=== PATIENT | male | born 2005 | race Caucasian/White ===

== ENCOUNTER 2025-02-28 08:17 | Observation (INO) ==
--- NOTE | 2025-02-28 08:59 | Emergency Department Note ---
ED Provider Note History of Present Illness Chief Complaint: Vomiting Stated Complaint: NON STOP VOMIT Time Seen by Provider: 02/28/25 08:34 Source: patient Mode of arrival: ambulatory Limitations: no limitations Patient is a 20-year-old male who presents to the emergency department with complaints of intractable vomiting. Patient states that he was seen at [facility] 2 days ago and he had some blood work completed that returned normal and they discharged home with Zofran. Patient states that yesterday the Zofran was not helping with the nausea and vomiting so he presented to the emergency department here at [facility]. Patient had repeat blood work and a CT of his abdomen pelvis completed yesterday while he was in the emergency department with no remarkable findings. Patient was discharged home yesterday with Zofran and plans to follow-up with GI. Patient presented here again today with intractable vomiting stating that he is unable to keep down any fluids or food. Patient denies any diarrhea and notes some intermittent abdominal cramping. Home Medications Medication Instructions Recorded Confirmed Type No Known Home Medications 02/28/25 02/28/25 History Allergies Allergy/AdvReac Type Severity Reaction Status Date / Time No Known Allergies Allergy Unverified 02/28/25 12:51 Past Med/Surg History Problem List (Updated 02/28/25 @ 15:31 by BLANE Oleary) Acute gastritis Nausea & vomiting (Acute) Social History Smoking Status: Current every day smoker Tobacco Type: E-cigarettes / Vaping Hx Alcohol Use: No Hx Substance Use: Yes Last Used Substance: Days (ago) Last Used Substance Other:: 02/25 Preferred Language: Russian Communication Ability: Effective [employer] Required: No Beliefs That Will Affect Care: None Current Living Situation: Family and Significant Other Current Living Situation Comment: girlfriend and daughter Feels Safe at Home: Yes Physical Exam Vital Signs Vital Signs - 24 hr 02/28/25 08:30 02/28/25 09:08 02/28/25 10:15 Temperature 36.7 C Temperature Source Skin Pulse Rate 47 L 43 L Pulse Rate [Apical] Pulse Rate from SpO2 Sensor 43 L Pulse Rhythm [Apical] Pulse Strength [Apical] Respiratory Rate 16 22 Respiratory Effort / Characteristics Non-Labored Spontaneous Respiratory Depth Normal Respiratory Pattern Regular Blood Pressure 134/61 Blood Pressure [Right Arm] Blood Pressure Mean 85 Blood Pressure Mean [Right Arm] Blood Pressure Position Sitting Blood Pressure Position [Right Arm] Pulse Oximetry 100 97 95 Oxygen Delivery Method Room Air Room Air Sepsis Recent Fever Within 48 Hours No Sepsis New/Unexplained Change in Mental Status N/A Sepsis Action Taken by Nursing No Action Required 02/28/25 10:21 02/28/25 10:30 02/28/25 10:30 Temperature Temperature Source Pulse Rate 49 L 47 L Pulse Rate [Apical] Pulse Rate from SpO2 Sensor 49 L Pulse Rhythm [Apical] Pulse Strength [Apical] Respiratory Rate 19 Respiratory Effort / Characteristics Respiratory Depth Respiratory Pattern Blood Pressure 133/75 Blood Pressure [Right Arm] Blood Pressure Mean 94 Blood Pressure Mean [Right Arm] Blood Pressure Position Blood Pressure Position [Right Arm] Pulse Oximetry 97 Oxygen Delivery Method Sepsis Recent Fever Within 48 Hours Sepsis New/Unexplained Change in Mental Status Sepsis Action Taken by Nursing 02/28/25 11:12 02/28/25 11:31 02/28/25 11:33 Temperature Temperature Source Pulse Rate 43 L 47 L 43 L Pulse Rate [Apical] Pulse Rate from SpO2 Sensor 43 L 43 L Pulse Rhythm [Apical] Pulse Strength [Apical] Respiratory Rate 21 22 20 Respiratory Effort / Characteristics Respiratory Depth Respiratory Pattern Blood Pressure 126/65 120/65 120/65 Blood Pressure [Right Arm] Blood Pressure Mean 85 84 83 Blood Pressure Mean [Right Arm] Blood Pressure Position Blood Pressure Position [Right Arm] Pulse Oximetry 98 99 98 Oxygen Delivery Method Sepsis Recent Fever Within 48 Hours Sepsis New/Unexplained Change in Mental Status Sepsis Action Taken by Nursing 02/28/25 12:06 02/28/25 12:32 02/28/25 12:49 Temperature Temperature Source Pulse Rate 57 L Pulse Rate [Apical] 49 L 53 L Pulse Rate from SpO2 Sensor 53 L Pulse Rhythm [Apical] Regular Pulse Strength [Apical] Normal Respiratory Rate 12 20 20 Respiratory Effort / Characteristics Non-Labored Spontaneous Respiratory Depth Normal Respiratory Pattern Regular Blood Pressure Blood Pressure [Right Arm] 125/64 132/65 Blood Pressure Mean Blood Pressure Mean [Right Arm] 84 87 Blood Pressure Position Blood Pressure Position [Right Arm] Lying Lying Pulse Oximetry 98 96 98 Oxygen Delivery Method Room Air Sepsis Recent Fever Within 48 Hours Sepsis New/Unexplained Change in Mental Status Sepsis Action Taken by Nursing VITAL SIGNS - Vital signs and nursing notes were reviewed. GENERAL -20-year-old male appearing his stated age who is in no acute distress. Communicates well with provider and answers questions appropriately. HEAD - NC/AT. EYES - PERRL with EOMI bilaterally. Conjunctiva pink and moist with no injection noted. EARS - No deformities of external structures noted on gross examination bilaterally. NOSE - Midline and without cyanosis. No epistaxis or purulent drainage noted. LUNGS - Chest wall symmetric without accessory muscle use, intercostals retractions, or central cyanosis. Breath sounds clear throughout all arshad. No wheezes, rales, or rhonchi appreciated. CARDIAC - RRR with S1/S2. No murmur, rubs, or gallops appreciated. ABDOMEN - Abdominal contour without pulsations or visible masses. Negative Keyon's or Moreno Whyte's Signs. BS normoactive all four quadrants. No increased tenderness to palpation appreciated. No guarding. No rebound Tenderness. No palpable masses, hepatosplenomegaly, or ascites noted. NEUROLOGIC - Sensory intact to light touch throughout. PSYCH - A&Ox3 and cooperates fully with examiner. Pt is very pleasant and interacts well with examiner. Course Administered Medications Discontinued Medications Sodium Chloride (Nss) 1,000 mls @ 999 mls/hr IV .Q1H1M ONE Stop: 02/28/25 09:44 Last Infusion: 02/28/25 10:09 Dose: Infused Documented By: Admin: 02/28/25 09:04 Dose: 999 mls/hr Documented By: ERMA Potassium Chloride (K Arias / Wtr) 10 meq in 100 mls @ 100 mls/hr IV ONE ONE Stop: 02/28/25 11:25 Last Infusion: 02/28/25 12:26 Dose: Infused Documented By: Admin: 02/28/25 10:44 Dose: 100 mls/hr Documented By: ERMA Sodium Chloride (Nss) 1,000 mls @ 999 mls/hr IV .Q1H1M ONE Stop: 02/28/25 11:26 Last Infusion: 02/28/25 12:26 Dose: Infused Documented By: Admin: 02/28/25 10:44 Dose: 999 mls/hr Documented By: ERMA Promethazine HCl (Phenergan) 12.5 mg in 50.5 mls @ 202 mls/hr IV NOW STA Stop: 02/28/25 12:14 Last Infusion: 02/28/25 12:26 Dose: Infused Documented By: Admin: 02/28/25 12:04 Dose: 202 mls/hr Documented By: JM Metoclopramide HCl (Metoclopramide Hcl Inj 5 Mg/Ml 2 Ml Vial) 10 mg IV NOW STA Stop: 02/28/25 11:37 Last Admin: 02/28/25 11:41 Dose: 10 mg Documented By: JM Ondansetron HCl (Ondansetron Inj 2 Mg/Ml 2 Ml Vial) 4 mg IV NOW STA Stop: 02/28/25 08:45 Last Admin: 02/28/25 09:04 Dose: 4 mg Documented By: ERMA Medical Decision Making Differential Diagnosis Intractable vomiting, gastritis, gastroenteritis, IBS, small bowel obstruction, pancreatitis, peritonitis, cannabis hyperemesis syndrome, among others. Medical Records Attestation: I reviewed the patient's medical records. Home Medications was personally reviewed by me Laboratory Data Attestation: I reviewed the patient's lab results. 02/28/25 09:05 02/28/25 09:05 Lab Results 02/28/25 02/28/25 02/28/25 Range/Units 09:00 09:05 10:43 WBC 8.30 (4.8-10.8) K/ul RBC 4.03 L (4.70-6.10) M/uL Hgb 12.4 L (14.0-18.0) g/dl Hct 35.3 L (42.0-52.0) % MCV 87.6 (80.0-100.0) fL MCH 30.8 (25.0-34.0) pg MCHC 35.1 (32.0-36.0) g/dL RDW Std Deviation 38.9 (36.4-46.3) fL RDW Coeff of Jeovanny 12.0 (11.5-14.5) % Plt Count 212 (130-400) K/uL MPV 10.8 (9.4-12.4) fL Immature Gran % (Auto) 0.2 % Neut % (Auto) 78.7 % Lymph % (Auto) 11.7 % Vermillion % (Auto) 9.0 % Eos % (Auto) 0.0 % Baso % (Auto) 0.4 % Neut # (Auto) 6.53 H (1.40-6.50) K/uL Lymph # (Auto) 0.97 L (1.20-3.40) K/uL Vermillion # (Auto) 0.75 H (0.11-0.59) K/uL Eos # (Auto) 0.00 (0.00-0.50) K/uL Baso # (Auto) 0.03 (0.00-0.20) K/uL Immature Gran # (Auto) 0.02 (0.01-0.20) K/uL VBG pH 7.42 H (7.36-7.41) VBG pCO2 46 (38-50) mmHg VBG pO2 48 mmHg VBG HCO3 30 mmol/L VBG O2 Saturation 77.9 % VBG Base Excess 4.5 mEq/L Sodium 137 (136-145) mmol/L Potassium 3.2 L (3.5-5.1) mmol/L Chloride 102 (98-107) mmol/L Carbon Dioxide 29 (21-32) mmol/L Anion Gap 6 (3-11) BUN 11 (6-23) mg/dl Creatinine 0.91 (0.6-1.4) mg/dl Est Cr Clr Drug Dosing 131.3 ml/min eGFR 123.74 BUN/Creatinine Ratio 12.1 (10-20) Glucose 145 H (70-99(Fasting)) mg/dl Calcium 9.3 (8.6-10.3) mg/dl Total Bilirubin 1.2 H (0.2-1.0) mg/dl AST 14 (13-39) U/L ALT 9 (7-52) U/L Alkaline Phosphatase 59 (34-104) U/L Total Protein 6.6 (6.0-8.3) gm/dl Albumin 4.5 (3.4-5.0) gm/dl Globulin 2.1 L (2.5-4.0) gm/dl Albumin/Globulin Ratio 2.1 H (0.9-2) Lipase 29 (11-82) U/L Urine Color Yellow Urine Appearance Clear (Clear) Urine pH 7.5 (4.5-7.5) Ur Specific Omak 1.025 (1.000-1.030) Urine Protein Trace H (Negative) Urine Glucose (UA) Trace H (Negative) Urine Ketones 4+ H (Negative) Urine Blood Negative (Negative) Urine Nitrite Negative (Negative) Urine Bilirubin 1+ H (Negative) Urine Urobilinogen Positive H (Negative) Ur Leukocyte Esterase Negative (Negative) Urine RBC 0-2 (0-2) /hpf Urine WBC 0-5 (0-5) /hpf Ur Epithelial Cells 0-2 (0-2) /hpf Urine Bacteria None Seen (None Seen) Urine Comment Imaging Data Radiologist's Impression: Liver Ultrasound 02/28/25 08:44 US liver CLINICAL HISTORY: persistent abdominal pain vomiting, compare CT COMPARISON STUDY: CT of the abdomen and pelvis February 27, 2025. FINDINGS: There are no hepatic lesions. The liver is sonographically normal. There is no biliary ductal dilatation status post cholecystectomy. The common bile duct measures 4 mm in caliber. There is trace perihepatic fluid. The pancreatic body is normal. The head and tail are partially obscured. There is no right hydronephrosis. IMPRESSION: 1. No biliary ductal dilatation status post cholecystectomy. 2. Trace perihepatic fluid. ACT 112: Negative or not required by law. Electronically signed by: Royal Wong M.D. 02/28/2025 10:41 AM [facility] Narrative Patient is a 20-year-old male who presents to the emergency department with complaints of intractable vomiting. Patient states that he was seen at [facility] 2 days ago and he had some blood work completed that returned normal and they discharged home with Zofran. Patient states that yesterday the Zofran was not helping with the nausea and vomiting so he presented to the emergency department here at [facility]. Patient had repeat blood work and a CT of his abdomen pelvis completed yesterday while he was in the emergency department with no remarkable findings. Patient was discharged home yesterday with Zofran and plans to follow-up with GI. Patient presented here again today with intractable vomiting stating that he is unable to keep down any fluids or food. Patient denies any diarrhea and notes some intermittent abdominal cramping. Patient was evaluated by myself and findings were noted in the physical exam above. Patient was ordered IV placement, lab work, ultrasound, and a liter of normal saline as well as a dose of Zofran. Patient's lab work resulted with a normal white blood cell count of 8.30. Patient had some mild anemia noted with a hemoglobin of 12.4 and hematocrit of 35.3. Patient had no significant electrolyte imbalance noted. Patient did have a slightly elevated blood glucose of 145. Patient had some mild hypokalemia 3.2. Patient had a VBG collected which was unremarkable. Patient's urinalysis was positive for ketones and bilirubin, however was not indicative of infection. Patient also had an ultrasound of his liver completed to note no biliary ductal dilation status postcholecystectomy and the liver was sonographically normal. Patient did have some trace perihepatic fluid noted. Patient had a hepatitis panel collected at his visit to the emergency department yesterday which thus far is resulted negative with several results still pending. I discussed all these findings with the patient and the patient verbalized understanding. Patient notes that he still feeling significantly nauseous and was ordered a dose of Reglan as well as potassium replacement and more normal saline at this time. Upon subsequent reevaluation the patient is still feeling severely nauseous and had an episode of emesis when he attempted to drink p.o. fluids. Patient was ordered a dose of Phenergan and noted that he does not he is going to be able to go home when he is feeling as sick as he is and believes that he may just come back to the emergency department because his symptoms have been so debilitating. I reached out and [facility] and gave him a full report of the patient's chief complaint, current status and the results of his imaging and lab work. I discussed with him that the patient does not feel that he can go home with the level of nausea and vomiting that he has been experiencing. Dr. Guerrero agreed to admit the patient for observation under his service. Please [facility] for further evaluation and management of this patient. Impression Nausea & vomiting Discharge Plan Visit Data Chief Complaint: Vomiting Stated Complaint: NON STOP VOMIT ED Provider: Ander Vazquez ED Midlevel Provider: Hannah Metzger Discharge Problem: Nausea & vomiting Patient Disposition: Admitted As Inpatient Condition: Fair Discharge Instructions Interventions: ED Discharge Assessment Last Done: 02/28/25 14:38 ED DC CONDITION Conditon at Discharge Condition at Discharge: Good Discharge Problem: Nausea & vomiting Qualifiers: Vomiting type: unspecified Qualified Code(s): R11.2 - Nausea with vomiting, unspecified
[2025-02-28] MEDS: ONDANSETRON INJ 2 MG/ML 2 ML VIAL IV STA (09:04)
[2025-02-28] MEDS: SODIUM CHLORIDE 0.9% 1,000 ML IV ONE ×2 (09:04→10:44)
[2025-02-28 09:21] LABS: Appearance Urine Clear (Clear); Glucose Urine UA Trace (Negative)
[2025-02-28 09:28] LABS: Hematocrit (blood only) 35.3 % (42.0-52.0); Hemoglobin 12.4 g/dl (14.0-18.0); Immature Granulocytes # (auto) 0.02 K/uL (0.01-0.20); Immature Granulocytes % (auto) 0.2 %; Mean Corpuscular Hemoglobin 30.8 pg (25.0-34.0); Mean Corpuscular Volume 87.6 fL (80.0-100.0); Platelet Count 212 K/uL (130-400); RDW Standard Deviation 38.9 fL (36.4-46.3); Red Blood Count 4.03 M/uL (4.70-6.10); White Blood Count 8.30 K/ul (4.8-10.8)
[2025-02-28 09:32] LABS: Epithelial Cell Urine 0-2 /hpf (0-2)
[2025-02-28 09:46] LABS: Alanine Aminotransferase 9.0 U/L (7-52); Albumin Globulin Ratio 2.1 (0.9-2); Alkaline Phosphatase 59.0 U/L (34-104); Anion Gap 6.0 (3-11); Bilirubin,Total 1.2 mg/dl (0.2-1.0); Blood Urea Nitrogen 11.0 mg/dl (6-23); Calcium 9.3 mg/dl (8.6-10.3); Carbon Dioxide 29.0 mmol/L (21-32); Chloride 102.0 mmol/L (98-107); Creatinine Clr Calc Pharmacy 131.3 ml/min; Globulin 2.1 gm/dl (2.5-4.0); Glucose 145.0 mg/dl (70-99(Fasting)); Lipase 29.0 U/L (11-82); Potassium 3.2 mmol/L (3.5-5.1); Sodium 137.0 mmol/L (136-145); Total Protein 6.6 gm/dl (6.0-8.3)
--- NOTE | 2025-02-28 10:42 | Ultrasound Report ---
US liver CLINICAL HISTORY: persistent abdominal pain vomiting, compare CT COMPARISON STUDY: CT of the abdomen and pelvis February 27, 2025. FINDINGS: There are no hepatic lesions. The liver is sonographically normal. There is no biliary duct al dilatation status post cholecystectomy. The common bile duct measures 4 mm in caliber. There is tr ino perihepatic fluid. The pancreatic body is normal. The head and tail are partially obscured. There is no right hydronephrosis. IMPRESSION: 1. No biliary ductal dilatation status post cholecystectomy. 2. Trace perihepatic fluid. ACT 112: Negative or not required by law. Electronically signed by: Royal Wong M.D. 02/28/2025 10:41 AM
[2025-02-28] MEDS: POTASSIUM CHLORIDE / WTR 10 MEQ/100 ML PLCT IV ONE (10:44)
[2025-02-28 10:48] LABS: Base Excess VBG 4.5 mEq/L; HCO3 VBG 30 mmol/L; Oxygen Saturation VBG 77.9 %; PCO2 VBG 46 mmHg (38-50); PO2 VBG 48 mmHg; pH VBG 7.42 (7.36-7.41)
[2025-02-28] MEDS: METOCLOPRAMIDE HCL INJ 5 MG/ML 2 ML VIAL IV STA (11:41)
[2025-02-28] MEDS: PROMETHAZINE 12.5 MG/50.5 ML BAG IV STA (12:04)
--- NOTE | 2025-02-28 13:36 | History & Physical Report ---
Date of Service February 28, 2025 Assessment & Plan (1) Nausea & vomiting: Plan: Found to be due to acute gastritis. Scheduled parenteral Reglan ordered. Phenergan will be administered as needed. Supportive care (2) Acute gastritis: Plan: IV Protonix. P.o. Carafate. Clear liquids to start. Advance as tolerated Plan Hopeful discharge to home within the next day or 2 History of Present Illness Chief Complaint: Epigastric pain, intractable nausea vomiting Primary Care Provider: Aminata Sheridan DO 20-year-old white male in otherwise good health who has had several days of epigastric discomfort and protracted nausea and vomiting. He is unable to keep down either liquids or solids. He denies hematemesis, melena or hematochezia. He does admit to smoking marijuana on a regular basis but has no previous history of hyperemesis. He denies acid reflux symptoms. He appears to have acute gastritis associated with intractable nausea and vomiting. Potassium level is low. He is placed in observation status for IV fluid rehydration and control of symptoms and treatment of suspected acute gastritis. Allergies Allergy/AdvReac Type Severity Reaction Status Date / Time No Known Allergies Allergy Unverified 02/28/25 12:51 Home Medications Medication Instructions Recorded Confirmed Type No Known Home Medications 02/28/25 02/28/25 History Past Med/Surg History Problem List (Updated 02/28/25 @ 13:35 by David Cardenas MD) Acute gastritis Nausea & vomiting (Acute) Social History Smoking Status: Current every day smoker Tobacco Type: E-cigarettes / Vaping Feels Safe at Home: Yes Review of Systems 2 Review of Systems: Constitutionalno fever or chills ENTno blurred vision, no double vision, no epistaxis, no sore throat Respiratoryno cough, no wheezing, no shortness of breath Cardiacno palpitations, no chest pain, no syncope GIpersistent and intractable nausea and vomiting. Epigastric discomfort. No melena or hematochezia. No GERD symptoms GUno urinary retention, no urinary incontinence, no dysuria, no hematuria Musculoskeletalno joint pain, no muscle tenderness Skinno bruising, no rashes, no pruritus Neurono isolated weakness, no paresthesia, no weakness Psychno depression, no anxiety Physical Exam 2 Physical Exam: General-alert and oriented x3, no fever, no chills HEENT-head atraumatic and normocephalic, pupils equal and reactive to light, extraocular muscles intact Neck-no lymphadenopathy or thyromegaly, trachea midline Chest-clear to auscultation. No rales, wheezing or rhonchi Cardiac-regular rate and rhythm, normal S1 and S2 Abdomen-normal bowel sounds, no hepatosplenomegaly. Nondistended. Tender epigastric region. No rebound or guarding. No masses Extremities-no cyanosis, clubbing, or edema Neuro-cranial nerves II through XII intact, motor and sensory function within normal limits, strength symmetrical, no focal deficits Psych-normal affect, normal mood Results & Data Results & Data Vital Signs (Past 12 Hours) Vital Signs Temp Pulse Pulse Resp BP BP Pulse Ox 02/28/25 12:49 53 L 20 132/65 98 02/28/25 12:32 49 L 20 125/64 96 02/28/25 12:06 57 L 12 98 02/28/25 11:33 43 L 20 120/65 98 02/28/25 11:31 47 L 22 120/65 99 02/28/25 11:12 43 L 21 126/65 98 02/28/25 10:30 47 L 19 97 02/28/25 10:30 133/75 02/28/25 10:21 49 L 02/28/25 10:15 43 L 22 95 02/28/25 09:08 97 02/28/25 08:30 36.7 C 47 L 16 134/61 100 O2 Del Method 02/28/25 12:49 02/28/25 12:32 Room Air 02/28/25 12:06 02/28/25 11:33 02/28/25 11:31 02/28/25 11:12 02/28/25 10:30 02/28/25 10:30 02/28/25 10:21 02/28/25 10:15 02/28/25 09:08 Room Air 02/28/25 08:30 Room Air Laboratory Results 02/28/25 09:05 02/28/25 09:05 Code Status & VTE Plan Code Status Full code PG Care Time/CCT Total # of Minutes Spent Total Time Spent with Patient: Total time spent is greater than 50% in coordination of care (as documented) at patient's floor/unit and/or counseling patient: Coding Level of Care Code 12312 INT INP/OBS CARE 3/75MIN Diagnoses Nausea & vomiting R11.2 Acute gastritis K29.00
[2025-02-28] MEDS: METOCLOPRAMIDE HCL INJ 5 MG/ML 2 ML VIAL IV SCH (15:29)
[2025-02-28] MEDS: POTASSIUM CHLORIDE 40 MEQ in D5W AND NSS 1,000 ML IV SCH (15:38)
[2025-02-28] MEDS: SUCRALFATE 1 GM TAB PO SCH (15:40)
[2025-02-28] MEDS: PROMETHAZINE 6.25 MG/50.25 ML BAG IV PRN (18:14)
[2025-02-28] MEDS: ZOLPIDEM TARTRATE 5 MG TAB PO SCH (21:42)
[2025-02-28] MEDS: PANTOprazole 40 MG/10 ML SYR IV SCH (21:42)
[2025-02-28] MEDS: ONDANSETRON INJ 2 MG/ML 2 ML VIAL IV PRN (22:15)
[2025-03-01] MEDS: PROCHLORPERAZINE 5 MG in SYRINGE 4 ML IV PRN (00:21)
[2025-03-01 06:12] LABS: Hematocrit (blood only) 35.3 % (42.0-52.0); Hemoglobin 11.8 g/dl (14.0-18.0); Immature Granulocytes # (auto) 0.03 K/uL (0.01-0.20); Immature Granulocytes % (auto) 0.3 %; Mean Corpuscular Hemoglobin 29.3 pg (25.0-34.0); Mean Corpuscular Volume 87.6 fL (80.0-100.0); Platelet Count 211 K/uL (130-400); RDW Standard Deviation 39.1 fL (36.4-46.3); Red Blood Count 4.03 M/uL (4.70-6.10); White Blood Count 9.53 K/ul (4.8-10.8)
[2025-03-01 06:30] LABS: Anion Gap 4.0 (3-11); Blood Urea Nitrogen 6.0 mg/dl (6-23); Calcium 8.6 mg/dl (8.6-10.3); Carbon Dioxide 28.0 mmol/L (21-32); Chloride 105.0 mmol/L (98-107); Creatinine Clr Calc Pharmacy 142.3 ml/min; Glucose 236.0 mg/dl (70-99(Fasting)); Potassium 4.8 mmol/L (3.5-5.1); Sodium 137.0 mmol/L (136-145)
--- NOTE | 2025-03-01 10:45 | Gastrointestinal Consultation ---
Date of Consultation March 01, 2025 Assessment & Plan (1) Nausea & vomiting: -Continue PPI -Continue antiemetics per primary team -Check A1C given hyperglycemic on fasting labs -Await hepatitis testing -Celiac panel in AM -Would have to keep in mind that marijuana may be triggering his cyclic vomiting syndrome. Will add Amitriptyline 10 mg QHS, with plans to titrate upwards to 25 mg QHS if tolerated. Supervising Physician Co-Signing Physician Notes Based on history his clinical pattern profile consistent with cyclic vomiting disorder. Question of a gangrenous cholecystitis in the past so this would be quite unusual in a fourteen 15-year-old. Asked them to obtain the path report from his Yazmin cystectomy in [place]. At this point I believe marijuana may be the trigger for reactivation of his cyclic vomiting disorder. He is vaping both nicotine and marijuana both which may trigger nausea. I think he is in a full-blown episode now which may be slow to settle. Management is hydration and antinauseants. Add amitriptyline. Reviewed in detail. Patient states will abstain from marijuana. Tells me his medical marijuana variant was 87% THC. Interesting patient started losing weight prior to this episode. Dating back to November. Suspect this was the prodrome to marijuana hyperemesis syndrome. Patient does not have hepatitis based on lab testing normal LFTs. Count normal. Abdomen entirely benign. History of Present Illness Reason for Consultation: Intractable n/v, patient requests consult Attending Physician: David Cardenas MD History of Present Illness Patient is a 20 yo male with a history of intermittent nausea and vomiting since age 14. Mother is at the bedside and supplements the history. She notes he had an extensive work-up with endoscopy, CT imaging, ultrasounds, labs. He was told he had cyclic vomiting syndrome. Episodes of nausea and vomiting would happen every 3 months without clear triggers. PPIs did not help, nor did H2 blockers. Mother notes that he was told that it was cannabinoid hyperemesis syndrome but she notes that they did not believe that could be true nor did his PCP as they did not feel that his marijuana use was significant enough. At some point throughout his teenage years, he notes that a surgeon took out his gallbladder at [facility]. He was seeing a GI there as well. He notes he managed his symptoms well for years after the cholecystectomy with Zofran. This changed several days ago when he developed epigastric pain, nausea, and vomiting. He felt that this was different than his previous episodes of n/v. Symptoms began after eating chips at work. He was unable to keep down solids or liquids. No hematemesis, melena, or hematochezia, but notes looser stool. He notes he smokes marijuana and UDS does corroborate this. No acid reflux or heartburn. No focal abdominal pain. K was low. Work up thus far at [facility] includes: * H/H 11.8/35.3 * Current Sodium, Potassium, CO2, Cl, BUN, Cr within normal limits now, but K on admission was 3.2 * VBG pH on admission was 7.42 * Serum glucose 236 this AM, serum glucose 145 on 02/28, serum glucose 136 on 02/27/25 * T bili 1.2 * AST/ALT within normal limits * UA showed trace protein and glucose, but 4+ ketones, 1+ bili, and + urobilinogen * Hepatitis A pending * Hepatitis C negative * Hepatitis B IgM Ab pending * Hepatitis B antigen negative * Liver US that shows trace perihepatic fluid * CT abd/pelvis suggests mild hepatomegaly and findings concerning for a possible hepatitis Patient currently prescribed Compazine, Reglan, Zofran, Carafate, Promethazine by the primary team Allergies Allergy/AdvReac Type Severity Reaction Status Date / Time No Known Allergies Allergy Unverified 02/28/25 12:51 Home Medications Medication Instructions Recorded Confirmed Type No Known Home Medications 02/28/25 02/28/25 History Patient History Social History Smoking Status: Current every day smoker Tobacco Type: E-cigarettes / Vaping Hx Alcohol Use: No Hx Substance Use: Yes Last Used Substance: Days (ago) Last Used Substance Other:: 02/25 Preferred Language: Slovenian Communication Ability: Effective 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 Beliefs That Will Affect Care: None Current Living Situation: Family and Significant Other Current Living Situation Comment: girlfriend and daughter Feels Safe at Home: Yes Assistive Devices: None Review of Systems Constitutional: no fever and no chills Respiratory: no cough and no dyspnea Gastrointestinal: + abdominal pain (epigastric), + nausea and + vomiting Physical Exam Constitutional: well developed; no acute distress Respiratory: normal respiratory effort Cardiovascular: Rate/Rhythm: regular rate Gastrointestinal (Abdomen): normal bowel sounds, soft, nontender, no hepatosplenomegaly Psychiatric: Orientation: alert and oriented x 3 Results & Data Vital Signs (Past 12 Hours) Vital Signs Temp Pulse Resp BP Pulse Ox O2 Del Method 03/01/25 07:17 37.0 C 49 L 14 113/59 L 97 Room Air 02/28/25 23:51 148/73 H 02/28/25 23:50 36.8 C 45 L 18 99 Room Air PG Care Time/CCT Total # of Minutes Spent Total Time Spent with Patient: Total time spent is greater than 50% in coordination of care (as documented) at patient's floor/unit and/or counseling patient: Coding Level of Care Code 14926 INT INP/OBS CARE 3/75MIN Diagnoses Nausea & vomiting R11.2 Vomiting type: unspecified (1) Nausea & vomiting Vomiting type: unspecified Qualified Code(s): R11.2 - Nausea with vomiting, unspecified
[2025-03-01 11:04] VITALS: RESP 16
[2025-03-01 13:36] LABS: Hemoglobin A1C 5.3 % (4.5-5.6)
--- NOTE | 2025-03-01 14:00 | Hospitalist Progress Note ---
Date of Service March 01, 2025 Assessment & Plan (1) Nausea & vomiting: Plan: Thought to be due to cannabis hyperemesis syndrome and acute gastritis. Continue scheduled parenteral Reglan. Continue Protonix and Carafate. GI consultation appreciated. (2) Acute gastritis: Plan: Continue treatment with Protonix and Carafate. Diet has been advanced. IV fluids have been tapered down. (3) Cannabis hyperemesis syndrome concurrent with and due to cannabis abuse: Plan: By past history. Plan Anticipate eventual discharge to home once symptomatically improved Admission and Anticipated Discharge Date Admission Date: February 28, 2025 Subjective Alert and oriented. No distress. Unfortunately he still has persistent nausea and remains on parenteral scheduled Reglan therapy. He is also on Protonix and Carafate. IV fluids have been tapered down and diet advanced. Gastroenterology consultation noted. Apparently he has a past history of hyperemesis cannabis syndrome. Review of Systems 2 Review of Systems: Constitutionalno fever or chills ENTno blurred vision, no double vision, no epistaxis, no sore throat Respiratoryno cough, no wheezing, no shortness of breath Cardiacno palpitations, no chest pain, no syncope GIpersistent and intractable nausea and vomiting. Epigastric discomfort. No melena or hematochezia. No GERD symptoms GUno urinary retention, no urinary incontinence, no dysuria, no hematuria Musculoskeletalno joint pain, no muscle tenderness Skinno bruising, no rashes, no pruritus Neurono isolated weakness, no paresthesia, no weakness Psychno depression, no anxiety Physical Exam 2 Physical Exam: General-alert and oriented x3, no fever, no chills HEENT-head atraumatic and normocephalic, pupils equal and reactive to light, extraocular muscles intact Neck-no lymphadenopathy or thyromegaly, trachea midline Chest-clear to auscultation. No rales, wheezing or rhonchi Cardiac-regular rate and rhythm, normal S1 and S2 Abdomen-normal bowel sounds, no hepatosplenomegaly. Nondistended. Tender epigastric region. No rebound or guarding. No masses Extremities-no cyanosis, clubbing, or edema Neuro-cranial nerves II through XII intact, motor and sensory function within normal limits, strength symmetrical, no focal deficits Psych-normal affect, normal mood Results & Data Results & Data Vital Signs (Past 12 Hours) Vital Signs Temp Pulse Resp BP Pulse Ox O2 Del Method O2 Flow Rate 08/19/25 11:02 36.7 C 74 16 112/56 L 96 Nasal Cannula 1 03/01/25 07:17 37.0 C 49 L 14 113/59 L 97 Room Air Laboratory Results 03/01/25 05:43 03/01/25 05:43 PG Care Time/CCT Total # of Minutes Spent Total Time Spent with Patient: Total time spent is greater than 50% in coordination of care (as documented) at patient's floor/unit and/or counseling patient: Coding Level of Care Code 65614 SUB INP/OBS CARE 2/35MIN Diagnoses Nausea & vomiting R11.2 Vomiting type: unspecified Acute gastritis K29.00 Cannabis hyperemesis syndrome concurrent with and due to cannabis abuse F12.188 (1) Nausea & vomiting Vomiting type: unspecified Qualified Code(s): R11.2 - Nausea with vomiting, unspecified
[2025-03-01 14:41] LABS: Adenovirus F 40/41 PCR Not Detected (NotDetected); Campylobacter PCR Not Detected (NotDetected); Enteroaggregative E.coli(EAEC) Not Detected (NotDetected); Shiga-like Toxin E.coli (STEC) Not Detected (NotDetected); Vibrio species PCR Not Detected (NotDetected)
[2025-03-01] MEDS: AMITRIPTYLINE HCL 10 MG TAB PO SCH (20:36)
[2025-03-02 06:12] LABS: Hematocrit (blood only) 36.2 % (42.0-52.0); Hemoglobin 12.9 g/dl (14.0-18.0); Immature Granulocytes # (auto) 0.03 K/uL (0.01-0.20); Immature Granulocytes % (auto) 0.3 %; Mean Corpuscular Hemoglobin 30.9 pg (25.0-34.0); Mean Corpuscular Volume 86.6 fL (80.0-100.0); Platelet Count 218 K/uL (130-400); RDW Standard Deviation 38.2 fL (36.4-46.3); Red Blood Count 4.18 M/uL (4.70-6.10); White Blood Count 9.24 K/ul (4.8-10.8)
[2025-03-02 06:31] LABS: Anion Gap 7.0 (3-11); Blood Urea Nitrogen 5.0 mg/dl (6-23); Calcium 9.3 mg/dl (8.6-10.3); Carbon Dioxide 30.0 mmol/L (21-32); Chloride 103.0 mmol/L (98-107); Creatinine Clr Calc Pharmacy 123.2 ml/min; Glucose 116.0 mg/dl (70-99(Fasting)); Potassium 4.0 mmol/L (3.5-5.1); Sodium 140.0 mmol/L (136-145)
--- NOTE | 2025-03-02 12:17 | Hospitalist Progress Note ---
Date of Service March 02, 2025 Assessment & Plan (1) Nausea & vomiting: Plan: Thought to be due to cannabis hyperemesis syndrome and acute gastritis. Continue scheduled parenteral Reglan. Continue Protonix and Carafate. GI consultation appreciated. Unfortunately, no improvement yet (2) Acute gastritis: Plan: Continue treatment with Protonix and Carafate. Diet has been advanced. IV fluids have been tapered down. (3) Cannabis hyperemesis syndrome concurrent with and due to cannabis abuse: Plan: By past history. Plan Anticipate eventual discharge to home once symptomatically improved. Hopefully within the next day or 2 Admission and Anticipated Discharge Date Admission Date: March 02, 2025 Subjective Unfortunately, no improvement yet. Oral intake remains poor. He is on maximal medical therapy with oral Protonix and Carafate along with scheduled dosing of intravenous metoclopramide. Review of Systems 2 Review of Systems: Constitutionalno fever or chills ENTno blurred vision, no double vision, no epistaxis, no sore throat Respiratoryno cough, no wheezing, no shortness of breath Cardiacno palpitations, no chest pain, no syncope GIpersistent and intractable nausea and vomiting. Epigastric discomfort. No melena or hematochezia. No GERD symptoms GUno urinary retention, no urinary incontinence, no dysuria, no hematuria Musculoskeletalno joint pain, no muscle tenderness Skinno bruising, no rashes, no pruritus Neurono isolated weakness, no paresthesia, no weakness Psychno depression, no anxiety Physical Exam 2 Physical Exam: General-alert and oriented x3, no fever, no chills HEENT-head atraumatic and normocephalic, pupils equal and reactive to light, extraocular muscles intact Neck-no lymphadenopathy or thyromegaly, trachea midline Chest-clear to auscultation. No rales, wheezing or rhonchi Cardiac-regular rate and rhythm, normal S1 and S2 Abdomen-normal bowel sounds, no hepatosplenomegaly. Nondistended. Tender epigastric region. No rebound or guarding. No masses Extremities-no cyanosis, clubbing, or edema Neuro-cranial nerves II through XII intact, motor and sensory function within normal limits, strength symmetrical, no focal deficits Psych-normal affect, normal mood Results & Data Results & Data Vital Signs (Past 12 Hours) Vital Signs Temp Pulse Resp BP Pulse Ox O2 Del Method 03/02/25 07:09 36.8 C 52 L 16 144/70 H 95 Room Air Laboratory Results 03/02/25 05:44 03/02/25 05:44 PG Care Time/CCT Total # of Minutes Spent Total Time Spent with Patient: Total time spent is greater than 50% in coordination of care (as documented) at patient's floor/unit and/or counseling patient: Coding Level of Care Code 59730 SUB INP/OBS CARE 2/35MIN Diagnoses Nausea & vomiting R11.2 Vomiting type: unspecified Acute gastritis K29.00 Cannabis hyperemesis syndrome concurrent with and due to cannabis abuse F12.188 (1) Nausea & vomiting Vomiting type: unspecified Qualified Code(s): R11.2 - Nausea with vomiting, unspecified
--- NOTE | 2025-03-02 14:39 | Gastroenterology Progress Note ---
Date of Service March 02, 2025 Assessment & Plan (1) Cyclic vomiting syndrome: Plan: -Continue Amitriptyline 10 mg QHS with plans to up-titrate. Did discuss yesterday this is not an abortive measure but a preventative intervention. -Continue IV Reglan as ordered. -Continue IV Protonix 40 mg BID. -Continue IV fluid hydration. -Add Sumatriptan 6 mg SC once to see if he benefits from this. -Did discuss that EGD while actively vomiting is not ideal due to risk of aspiration. Admission and Anticipated Discharge Date Admission Date: March 02, 2025 Supervising Physician Co-Signing Physician Notes Continues with nausea and vomiting. When examined at the bedside he was resting reasonably comfortable. Abdomen remains soft and benign. Because of persistent symptoms we will try Imitrex which can be used off label for cyclic vomiting disorder. Interestingly there is multiple family members with GI issues and cholecystectomies. Occasionally cyclic vomiting disorder can be associated with a mitochondrial disorder. CoQ 10 may be of benefit in this regard. Continue supportive care. In a well-established episode like this it can take 5 to 7 days to settle. No plan for endoscopy though we will reassess as time goes on. Low yield at this point. Subjective Patient with ongoing nausea/vomiting. He notes he is vomiting every 15 minutes. He is eating a popsicle at the time of my visit. K 4.0. He continues Protonix 40 mg BID, IV Reglan, and Amitriptyline. Review of Systems Gastrointestinal: + nausea and + vomiting Physical Exam Constitutional: no acute distress Respiratory: normal respiratory effort Gastrointestinal (Abdomen): Inspection/Auscultation: abdomen normal to inspection and normal bowel sounds Percussion/Palpation: abdomen soft; abdomen nontender Psychiatric: Orientation: alert and oriented x 3 Results & Data Results & Data Vital Signs (Past 12 Hours) Vital Signs Temp Pulse Resp BP Pulse Ox O2 Del Method 03/02/25 07:09 36.8 C 52 L 16 144/70 H 95 Room Air PG Care Time/CCT Total # of Minutes Spent Total Time Spent with Patient: Total time spent is greater than 50% in coordination of care (as documented) at patient's floor/unit and/or counseling patient: Coding Level of Care Code 72333 SUB INP/OBS CARE 2/35MIN Diagnoses Cyclic vomiting syndrome R11.15
[2025-03-03 07:41] LABS: Hematocrit (blood only) 38.2 % (42.0-52.0); Hemoglobin 13.2 g/dl (14.0-18.0); Immature Granulocytes # (auto) 0.04 K/uL (0.01-0.20); Immature Granulocytes % (auto) 0.4 %; Mean Corpuscular Hemoglobin 30.0 pg (25.0-34.0); Mean Corpuscular Volume 86.8 fL (80.0-100.0); Platelet Count 220 K/uL (130-400); RDW Standard Deviation 38.8 fL (36.4-46.3); Red Blood Count 4.40 M/uL (4.70-6.10); White Blood Count 9.02 K/ul (4.8-10.8)
[2025-03-03 07:55] VITALS: BP 115/68; PULSE 57; TEMP 98.4; O2SAT 97
[2025-03-03 07:56] LABS: Anion Gap 6.0 (3-11); Blood Urea Nitrogen 6.0 mg/dl (6-23); Calcium 9.7 mg/dl (8.6-10.3); Carbon Dioxide 32.0 mmol/L (21-32); Chloride 99.0 mmol/L (98-107); Creatinine Clr Calc Pharmacy 124.5 ml/min; Glucose 109.0 mg/dl (70-99(Fasting)); Potassium 3.5 mmol/L (3.5-5.1); Sodium 137.0 mmol/L (136-145)
--- NOTE | 2025-03-03 11:21 | Gastroenterology Progress Note ---
Date of Service March 03, 2025 Assessment & Plan (1) Cyclic vomiting syndrome: Plan: -Amitriptyline 25 mg QHS to be continued on discharge x 3 months -Coq10 supplementation at 300 mg BID on discharge -Protonix 40 mg daily for 4-6 weeks, then can d/c -Zofran 8 mg q 6 hr prn on discharge -Continue with marijuana abstinence -If he presents to the ED with an episode of [facility], would give SC Sumatriptan 6 mg -Will submit record request from [facility] to review previous records from cholecystectomy/pathology Admission and Anticipated Discharge Date Admission Date: March 02, 2025 Supervising Physician Co-Signing Physician Notes reviewed with OZZIE Mayfield, agree with current plan and discharge followup, no hamilton ferraro Subjective Patient is a 20 yo male with cyclic vomiting. He notes his vomiting has greatly improved and he is feeling so much better. He is eager to go home. K 3.5. Review of Systems Gastrointestinal: n/v improved Physical Exam Constitutional: well developed Respiratory: normal respiratory effort Gastrointestinal (Abdomen): normal bowel sounds, soft, nontender, no hepatosplenomegaly Results & Data Results & Data Vital Signs (Past 12 Hours) Vital Signs Temp Pulse Resp BP Pulse Ox O2 Del Method 03/03/25 07:54 36.9 C 57 L 16 115/68 97 Room Air PG Care Time/CCT Total # of Minutes Spent Total Time Spent with Patient: Total time spent is greater than 50% in coordination of care (as documented) at patient's floor/unit and/or counseling patient: Coding Level of Care Code 53372 SUB INP/OBS CARE 3/50MIN Diagnoses Cyclic vomiting syndrome R11.15
--- NOTE | 2025-03-03 11:53 | Discharge Summary ---
Discharge Summary Date of Service March 03, 2025 Principal Dx & Hospital Course #1 = Principal Diagnosis (1) Nausea & vomiting: Thought to be due to cannabis hyperemesis syndrome and acute gastritis. Treated while hospitalized with scheduled parenteral Reglan along with Protonix and Carafate. GI consultation appreciated. He was started on amitriptyline at bedtime and this seemed to help. This will be continued for 1 week at discharge. He now states he is much improved and wants to go home (2) Acute gastritis: Treated while hospitalized with Protonix and Carafate. Diet has been advanced. IV fluids have been tapered down. (3) Cannabis hyperemesis syndrome concurrent with and due to cannabis abuse: By past history. Plan Home today, March 03, on amitriptyline at bedtime for 1 more week. Further marijuana use is highly discouraged. Admission HPI Per Admitting Provider 20-year-old white male in otherwise good health who has had several days of epigastric discomfort and protracted nausea and vomiting. He is unable to keep down either liquids or solids. He denies hematemesis, melena or hematochezia. He does admit to smoking marijuana on a regular basis but has no previous history of hyperemesis. He denies acid reflux symptoms. He appears to have a cute gastritis associated with intractable nausea and vomiting. Potassium level is low. He is placed in observation status for IV fluid rehydration and control of symptoms and treatment of suspected acute gastritis. Discharge Exam General-alert and oriented x3, no fever, no chills HEENT-head atraumatic and normocephalic, pupils equal and reactive to light, extraocular muscles intact Neck-no lymphadenopathy or thyromegaly, trachea midline Chest-clear to auscultation. No rales, wheezing or rhonchi Cardiac-regular rate and rhythm, normal S1 and S2 Abdomen-normal bowel sounds, no hepatosplenomegaly. Nondistended. No rebound or guarding. No masses Extremities-no cyanosis, clubbing, or edema Neuro-cranial nerves II through XII intact, motor and sensory function within normal limits, strength symmetrical, no focal deficits Psych-normal affect, normal mood Discharge Plan Discharge Items Patient Disposition: Home - Self-Care Reason For Visit: INTRACTABLE N/V Discharge Diagnosis: Suspected cannabis hyperemesis syndrome with intractable nausea and vomiting Condition on Discharge: Good Activity: Resume your previous activity Non-emergency contact: Primary Care Provider Call non-emergency contact if: your symptoms worsen Follow-up/Referrals: Aminata Sheridan, [Primary Care Provider] - Diet: Regular Addtl Attending Provider Instructions: Stopping marijuana use is highly recommended. Continue amitriptyline 10 mg at bedtime for 1 more week. A prescription has been sent to the [facility] in [place] Pending Studies at Discharge: No Stand-Alone Forms: My [employer], Smoking Cessation Medications and DC Order Prescriptions: New amitriptyline 25 mg Tablet 25 mg PO DAILY@1999 Qty: 7 0RF Discharge Orders: Discharge Order (Routine); Ordered 03/03/25 Ordered By: David Cardenas Admission Data Admit Date/Time: 03/02/25 11:55 Attending Provider: David Cardenas Admit Provider: David Cardenas Primary Care Provider: Aminata Sheridan Other Providers: David Cardenas; Jessica Connell Jr Hospital Stay Data Consultations 02/28/25 12:24 ED Decision to Admit Stat 03/01/25 05:26 Consult Gastroenterology Routine Diagnostic Imagining Performed 02/28/25 08:44 US liver Stat Pending Results Patient Have Any Pending Studies at Discharge: No Discharge Instructions Given to Patient (Per Discharging Provider) Stopping marijuana use is highly recommended. Continue amitriptyline 10 mg at bedtime for 1 more week. A prescription has been sent to the [facility] in [place] Total Time Total Time Spent Total Time Spent (In Minutes): 45 minutes Coding Level of Care Code 53243 INP/OBS DISCH >30 MIN Diagnoses Nausea & vomiting R11.2 Vomiting type: unspecified Acute gastritis K29.00 Cannabis hyperemesis syndrome concurrent with and due to cannabis abuse F12.188
[2025-03-03] MEDS ORDERED: AMITRIPTYLINE HCL 25 MG TAB PO SCH (20:00)
== END 2025-03-03 13:12 | disposition home or self-care (01) ==
LOC: SUATTDRO → ED 08:17 → 3E 08:17